=== PATIENT | female | born 1990 | race African-American/Black ===

== ENCOUNTER 2019-12-15 15:46 | Emergency (ER) | payer OTHER ==
[~2019-12-15] VITALS: Ht 144.8 cm; Wt 49.9 kg
[2019-12-15] MEDS ORDERED: NOHOMEMEDICATIONS (17:08)
[2019-12-15 18:00] LABS: URINE BILIRUBIN NEGATIVE (Negative); URINE BLOOD 3+ (Negative); URINE CLARITY CLEAR; URINE COLOR YELLOW; URINE GLUCOSE-RANDOM* NEGATIVE (Negative); URINE KETONES TRACE (Negative); URINE LEUKOCYTES-REFLEX TRACE (Negative); URINE PROTEIN (DIPSTICK) 2+ (Negative); URINE SPECIFIC GRAVITY 1.015 (1.005-1.035)
[2019-12-15 18:02] LABS: URINE NITRITE-REFLEX POSITIVE (Negative)
[2019-12-15 18:22] LABS: ABSOLUTE NEUTROPHILS 2.3 thou/uL (1.4-8.2); BASOPHILS 0.7 % (0.0-2.0); EOSINOPHILS 1.1 % (0.0-3.0); HEMOGLOBIN 9.1 gm/dL (12.0-15.0); MCH 29.6 pg (26.0-34.0); MCHC 33.7 g/dL (28.0-37.0); MONOCYTES 9.4 % (1.0-8.0); PLATELET COUNT 213 thou/uL (150-400); POLYS 49.8 % (36.0-66.0); RBC 3.07 mil/uL (4.20-5.00); RDW 14.5 % (10.5-14.5); WBC 4.6 thou/uL (4.0-11.0)
[2019-12-15 18:28] LABS: CASTS None Seen /LPF (None Seen); CRYSTALS None Seen /LPF (None Seen); SQUAMOUS 0-3 Few /LPF (0-3); URINE RBC >20 Many /HPF (0-2); URINE WBC-REFLEX 6-15 Few /HPF (0-5)
[2019-12-15 18:29] LABS: BACTERIA-REFLEX 1-9 Few /HPF (None Seen)
[2019-12-15 18:42] LABS: CALCIUM 8.7 mg/dL (8.5-10.1); CREATININE 0.7 mg/dL (0.6-1.0); POTASSIUM 3.5 mmol/L (3.5-5.1)
[2019-12-15 18:48] LABS: ALBUMIN 3.8 g/dL (3.4-5.0); TOTAL BILIRUBIN 0.4 mg/dL (0.2-1.0); TOTAL PROTEIN 7.9 g/dL (6.4-8.2)
[2019-12-15] MEDS ORDERED: ZOFRAN ODT4 MG DISSOLVE (21:27)
[2019-12-15] MEDS ORDERED: NAPROSYN500 MG PO (21:27)
[2019-12-15] MEDS ORDERED: IRON325 M1 PO (21:27)
[2019-12-15 22:01] VITALS: BP 112/70
[2019-12-15] MEDS ORDERED: DOXYCYCLINE 10100 MG PO (22:49)
== END 2019-12-15 22:02 | disposition home or self-care (01) ==
LOC: ER 15:46
PROVIDERS: Physician Assistant
DX: N83.202 Unspecified ovarian cyst, left side (principal); D64.9 Anemia, unspecified; R10.2 Pelvic and perineal pain; K92.0 Hematemesis; R31.9 Hematuria, unspecified; Z20.2 Contact with and (suspected) exposure to infections with a predominantly sexual mode of transmission